=== PATIENT | female | born 1970 | race Caucasian/White ===

== ENCOUNTER → 2016-06-08 | Outpatient (CLI) | payer BC ==
[2015-11-30 19:45] VITALS: BP 181/107
[~2016-06-08] MED LIST: HYDR-971 PO
--- NOTE | 2016-06-09 09:16 | KCIC ---
PROCEDURE MR of the right shoulder HISTORY Pain progressing for a few months. COMPARISON None TECHNIQUE Standard noncontrast images are obtained. FINDINGS The acromioclavicular joint is degenerative and hypertrophic with undersurface osteophytes and mild mass effect. There is rotator cuff tendinosis signal with mild thickening but no measurable tear. Trace subdeltoid bursal fluid. No significant glenohumeral joint effusion. Limited labrum exam by motion degradation but there does appear to be a tear of the superior labrum. Limited visualization of the biceps tendon, there is no evidence of acute rupture but there is some probable proximal tendinosis. No bone lesion or acute fracture. No acute soft tissue injury. IMPRESSION 1. Rotator cuff tendinosis without evidence of a tear. 2. Superior labral tear. Electronically signed by: Tristan Aaron MD (Jun 09, 2016 09:14:46)
== END | disposition home or self-care (01) ==
LOC: KCIC MRI 15:34
PROVIDERS: ATTEND Orthopaedic Surgery
DX: S43.431A Superior glenoid labrum lesion of right shoulder, initial encounter (principal)
CPT/HCPCS: 73221